=== PATIENT | female | born 1990 | race African-American/Black ===

== ENCOUNTER 2018-01-10 19:22 | Inpatient (IN) | payer BC, OTHER ==
[~2018-01-10] VITALS: Ht 170.2 cm; Wt 64.5 kg
[~2018-01-10 19:22] MED LIST: Z.0.NO CURRENT MEDS
[2018-01-10 19:35] VITALS: BP 133/78; PULSE 79; RESP 16; TEMP 99.1
--- NOTE | 2018-01-10 19:37 | PD ---
HPI Chief Complaint: Psychiatric Symptoms Time Seen by Provider: 19:36 Travel History International Travel<30 days: No Contact w/Intl Traveler<30days: No Traveled to known affect area: No History of Present Illness HPI 27-year-old female here under Avila act [place] by the [employer]. According to the paperwork the patient requested that law-enforcement kill her. Reportedly has a history of bipolar disorder, noncompliant with medication. She has had depression. Prescribed any medications but she does occasionally take [id number] WILMAN-E for mood control. She reports that today after work she was feeling particularly depressed and she went to a bar and told friends that this was her last day. She had no specific suicidal plan, she just had an ominous feeling. she denies any drug use. She has no other complaints at this time. [facility] Past Medical History Seizures: Yes (AT ) Social History Alcohol Use: Yes Tobacco Use: No Substance Use: No Allergies-Medications (Allergen,Severity, Reaction): Coded Allergies: No Known Allergies (Verified Allergy, Mild, 01/10/18) Reported Meds & Prescriptions Reported Meds & Active Scripts Active No Active Prescriptions or Reported Medications Review of Systems Except as stated in HPI: all other systems reviewed are Neg Physical Exam Narrative GENERAL: Well-developed well-nourished female no distress sitting upright in "signal 20" room. SKIN: Warm and dry. HEAD: Atraumatic. Normocephalic. EYES: Pupils equal and round. No scleral icterus. No injection or drainage. ENT: No nasal bleeding or discharge. Mucous membranes pink and moist. NECK: Trachea midline. No JVD. CARDIOVASCULAR: Regular rate and rhythm. No murmur appreciated. RESPIRATORY: No accessory muscle use. Clear to auscultation. Breath sounds equal bilaterally. GASTROINTESTINAL: Abdomen soft, non-tender, nondistended. Hepatic and splenic margins not palpable. MUSCULOSKELETAL: No obvious deformities. No clubbing. No cyanosis. No edema. NEUROLOGICAL: Awake and alert. No obvious cranial nerve deficits. Motor grossly within normal limits. Normal speech. Data Data Last Documented VS Vital Signs Date Time Temp Pulse Resp B/P (MAP) Pulse Ox O2 Delivery O2 Flow Rate FiO2 01/10/18 19:35 99.1 79 16 133/78 (96) Orders Orders Complete Blood Count With Diff (01/10/18 19:36) Comprehensive Metabolic Panel (01/10/18 19:36) Thyroid Stimulating Hormone (01/10/18 19:36) Ed Urine Pregnancytest Poc (01/10/18 19:36) Psych Screen (01/10/18 19:36) Drug Screen, Random Urine (01/10/18 19:36) Alcohol (Ethanol) (01/10/18 19:36) Salicylates (Aspirin) (01/10/18 19:36) Tylenol (Acetaminophen) (01/10/18 19:36) Potassium Chloride (Kcl) (01/10/18 20:45) Labs Laboratory Tests Test 01/10/18 19:34 White Blood Count 3.8 TH/MM3 Red Blood Count 4.49 MIL/MM3 Hemoglobin 12.7 GM/DL Hematocrit 38.3 % Mean Corpuscular Volume 85.3 FL Mean Corpuscular Hemoglobin 28.3 PG Mean Corpuscular Hemoglobin Concent 33.2 % Red Cell Distribution Width 13.5 % Platelet Count 167 TH/MM3 Mean Platelet Volume 9.5 FL Neutrophils (%) (Auto) 45.0 % Lymphocytes (%) (Auto) 42.4 % Monocytes (%) (Auto) 9.7 % Eosinophils (%) (Auto) 2.0 % Basophils (%) (Auto) 0.9 % Neutrophils # (Auto) 1.7 TH/MM3 Lymphocytes # (Auto) 1.6 TH/MM3 Monocytes # (Auto) 0.4 TH/MM3 Eosinophils # (Auto) 0.1 TH/MM3 Basophils # (Auto) 0.0 TH/MM3 CBC Comment DIFF FINAL Differential Comment Blood Urea Nitrogen 7 MG/DL Creatinine 0.70 MG/DL Random Glucose 76 MG/DL Total Protein 7.9 GM/DL Albumin 4.2 GM/DL Calcium Level 8.9 MG/DL Alkaline Phosphatase 50 U/L Aspartate Amino Transf (AST/SGOT) 15 U/L Alanine Aminotransferase (ALT/SGPT) 15 U/L Total Bilirubin 0.5 MG/DL Sodium Level 141 MEQ/L Potassium Level 3.2 MEQ/L Chloride Level 108 MEQ/L Carbon Dioxide Level 23.4 MEQ/L Anion Gap 10 MEQ/L Estimat Glomerular Filtration Rate 123 ML/MIN Thyroid Stimulating Hormone 3rd Gen 4.280 uIU/ML Salicylates Level LESS THAN 1.7 MG/DL Urine Opiates Screen NEG Acetaminophen Level LESS THAN 2.0 MCG/ML Urine Barbiturates Screen NEG Urine Amphetamines Screen NEG Urine Benzodiazepines Screen NEG Urine Cocaine Screen NEG Urine Cannabinoids Screen NEG Ethyl Alcohol Level 37 MG/DL MDM Medical Decision Making Medical Screen Exam Complete: Yes Emergency Medical Condition: Yes Medical Record Reviewed: Yes Differential Diagnosis Major depressive disorder, disorder not otherwise specified, acute psychosis, substance-induced mood disorder Narrative Course 27-year-old female presents under Avila act for psychiatric evaluation. Mental health screening discussed with the patient. Psychiatric screen ordered. Lab work reviewed. TSH elevated at 4.2. Potassium low at 3.2, oral potassium chloride ordered. Alcohol level 37. The patient is medically cleared for psychiatric disposition. Diagnosis Primary Impression: Medical clearance for psychiatric admission Additional Impression: Elevated TSH Scripts No Active Prescriptions or Reported Meds Dajuan Lawton January 10, 2018 19:37
[2018-01-10 19:50] LABS: AUTOMATED NEUTROPHIL # 1.7 TH/MM3 (1.8-7.7); BASOPHIL % 0.9 % (0.0-2.0); EOSINOPHIL # 0.1 TH/MM3 (0-0.4); HEMATOCRIT 38.3 % (35.0-46.0); HEMOGLOBIN 12.7 GM/DL (11.6-15.3); LYMPH % 42.4 % (9.0-44.0); LYMPHOCYTE # 1.6 TH/MM3 (1.0-4.8); MEAN CELL VOLUME 85.3 FL (80.0-100.0); MEAN CORPUSCULAR HEMOGLOBIN 28.3 PG (27.0-34.0); MEAN CORPUSCULAR HGB CONC 33.2 % (32.0-36.0); MEAN PLATELET VOLUME 9.5 FL (7.0-11.0); MONO % 9.7 % (0.0-8.0); MONOCYTE # 0.4 TH/MM3 (0-0.9); PLATELET COUNT 167 TH/MM3 (150-450); RED BLOOD COUNT 4.49 MIL/MM3 (4.00-5.30); RED CELL DISTRIBUTION WIDTH 13.5 % (11.6-17.2); WHITE BLOOD COUNT 3.8 TH/MM3 (4.0-11.0)
[2018-01-10 20:37] LABS: ALBUMIN 4.2 GM/DL (3.4-5.0); ALKALINE PHOSPHATASE 50 U/L (45-117); ALT (GPT) 15 U/L (10-53); AST (GOT) 15 U/L (15-37); BICARBONATE 23.4 MEQ/L (21.0-32.0); BLOOD UREA NITROGEN 7 MG/DL (7-18); CALCIUM 8.9 MG/DL (8.5-10.1); CHLORIDE 108 MEQ/L (98-107); GLOMERULAR FILTRATION RATE 123 ML/MIN (>89); GLUCOSE,RANDOM 76 MG/DL (74-106); SODIUM (NA) 141 MEQ/L (136-145); TOTAL BILIRUBIN ADULT 0.5 MG/DL (0.2-1.0); TOTAL PROTEIN 7.9 GM/DL (6.4-8.2)
[2018-01-10 20:42] LABS: ACETAMINOPHEN LESS THAN 2.0 MCG/ML (10.0-30.0)
[2018-01-10] MEDS ORDERED: POTASSIUM CHLORIDE 20 MEQ CONTROLLED RELEASE TAB PO ONE (20:45)
[2018-01-11 00:05] VITALS: BP 122/58; PULSE 66; RESP 16; O2SAT 100
[2018-01-11 06:37] VITALS: BP 113/56; PULSE 63; RESP 16; O2SAT 100
[2018-01-11] MEDS ORDERED: MAGNESIUM HYDROXIDE SUSP 30 ML CUP PO PRN (09:45)
[2018-01-11] MEDS ORDERED: ALUMINUM/MAGNESIUM/SIMETH 30 ML CUP PO PRN (09:45)
[2018-01-11] MEDS ORDERED: LORazepam 0.5 MG TAB PO PRN (09:45)
[2018-01-11] MEDS ORDERED: LORazepam 2 MG/ML VIAL IM PRN ×2 (09:45)
[2018-01-11] MEDS: NICOTINE 21 MG/24 HR PATCH T-DERMAL SCH (09:45)
[2018-01-11] MEDS ORDERED: ACETAMINOPHEN 325 MG TAB PO PRN (09:45)
[2018-01-11] MEDS ORDERED: LORazepam 1 MG TAB PO PRN (09:45)
[2018-01-11 12:22] VITALS: BP 129/84; PULSE 68; RESP 17; TEMP 98.2; O2SAT 100
--- NOTE | 2018-01-11 12:35 | HHI.HP ---
Provisional Diagnosis Admission Date January 11, 2018 at 09:36 [place] I. Adjustment disorder with depressed mood vs major depressive disorder, single episode, severe, without psychosis vs bipolar disorder, depressed type, [place] II. Unspecified personality disorder, cluster B traits identified [place] III. No significant medical history [place] IV. Previous suicide attempts, extensive self cutting behavior [place] V. 45 Certification of Person's Competence To Provide Express and Informed Consent I have personally examined Jose Raman , a person being served at [facility] on, January 11, 2018 12:08. Express and informed consent means consent voluntarily given in writing, by a competent person, after sufficient explanation and disclosure of the subject matter involved to enable the person to make a knowing and willful decision without any element of force, fraud, deceit, duress, or other form of constraint or coercion. This person is 18 years of age or older, is not now known to be incompetent to consent to treatment with a guardian advocate, and does not have a health care surrogate or proxy currently making medical treatment decisions. I have found this person to be one of the following: [] Competent to provide express and informed consent, as defined above, for voluntary admission to this facility and is competent to provide express and informed consent for treatment. He/she has the consistent capacity to make well reasoned, willful, and knowing decisions concerning his or her medical or mental health treatment. The person fully and consistently understands the purpose of the admission for examination/placement and is fully capable of personally exercising all rights assured [place] Incompetent to provide express and informed consent to voluntary admission, and this is incompetent to provide express and informed consent to treatment. The person must be transferred to involuntary status and a petition for a guardian advocate filed with the Circuit Court. [x] Refusing to provide express and informed consent to voluntary admission but is competent to provide express and informed consent for treatment. The person must be discharged or transferred to involuntary status. Form shall be completed within 24 hours of a person's arrival at the receiving facility and filed in the clinical record of each person: 1. Admitted on a voluntary basis 2. Permitted to provide express and informed consent to his/her own treatment 3. Allowed to transfer from involuntary to voluntary status 4. Prior to permitting a person to consent to his or her own treatment after having been previously found incompetent to consent to treatment. History of Present Illness Capacity: Has Capacity HPI The patient is a 27-year-old -Stateless woman, single, domiciled with her parents in [place], employed, college student, with psychiatric history of self-reported bipolar disorder, no previous psychiatric hospitalizations, one previous suicide attempt by overdosing, extensive self cutting behavior without SI, no significant medical history, who is here under Avila act initially by the [employer]. According to the paperwork the patient requested that law-enforcement kill her. Reportedly has a history of bipolar disorder, noncompliant with medication. She has had depression. Prescribed any medications but she does occasionally take [id number] WILMAN-E for mood control. She reports that today after work she was feeling particularly depressed and she went to a bar and told friends that this was her last day. She had no specific suicidal plan, she just had an ominous feeling. she denies any drug use. She has no other complaints at this time. Initially U tox was negative, BAL was 37. On psychiatric evaluation today the patient is calm, cooperative, she looks objectively depressed. The patient reports that she has been quite depressed in the last weeks. She says that she has been having persistent suicidal thoughts, but no suicidal intention or plan. She says that she needs help "because I am going to kill myself". She reports that there are several things going on in her life. She says that there is drama and her family in her job and at school. She reports that she has been very sensitive to criticisms and rejection of friends and family. She also reports mood swings and constant argument with her parents. She feels worthless, helpless and hopeless. She repeatedly says during interwe "I am a failure, I am a failure". He also reports anxiety, frequent preoccupation and worry for this reason difficulty to sleep at night. At this moment she denies suicidal enemas ideation, she denies visual and auditory hallucinations. The patient is fully oriented 3. No gross cognitive impairment present. She reports occasional use of alcohol and marijuana. The patient reports that in the past she has been diagnosed with bipolar disorder, but she has not taken any medication, at some point she told me that the only medication that she took and worked for her in the past was Ritalin and she would love to be back in this medication, which he could not tell me what was the reason she was taking this medication for. Review of Systems Constitutional: DENIES: Diaphoretic episodes, Fatigue, Fever, Weight gain, Weight loss, Chills, Dizziness, Change in appetite, Night Sweats Endocrine: DENIES: Abnorml menstrual pattern, Heat/cold intolerance, Polydipsia , Polyuria, Polyphagia Eyes: DENIES: Blurred vision, Diplopia, Eye inflammation, Eye pain, Vision loss , Photosensitivity, Double Vision Ears, nose, mouth, throat: DENIES: Tinnitus, Hearing loss, Vertigo, Nasal discharge, Oral lesions, Throat pain, Hoarseness, Ear Pain, Running Nose, Epistaxis, Sinus Pain, Toothache, Odynophagia Respiratory: DENIES: Apneas, Cough, Snoring, Wheezing, Hemoptysis, Sputum production, Shortness of breath Cardiovascular: DENIES: Chest pain, Palpitations, Syncope, Dyspnea on Exertion , PND, Lower Extremity Edema, Orthopnea, Claudication Gastrointestinal: DENIES: Abdominal pain, Black stools, Bloody stools, Constipation, Diarrhea, Nausea, Vomiting, Difficulty Swallowing, Anorexia Genitourinary: DENIES: Abnormal vaginal bleeding, Dysmenorrhea, Dyspareunia, Sexual dysfunction, Urinary frequency, Urinary incontinence, Urgency, Hematuria , Dysuria, Nocturia, Vaginal discharge Musculoskeletal: DENIES: Joint pain, Muscle aches, Stiffness, Joint Swelling, Back pain, Neck pain Integumentary: DENIES: Abnormal pigmentation, Pruritus, Rash, Nail changes, Breast masses, Breast skin changes, Nipple discharge Hematologic/lymphatic: DENIES: Bruising, Lymphadenopathy Immunologic/allergic: DENIES: Eczema, Urticaria Neurologic: DENIES: Abnormal gait, Headache, Localized weakness, Paresthesias, Seizures, Speech Problems, Tremor, Poor Balance Psychiatric: COMPLAINS OF: Depression, Suicidal Ideation, DENIES: Anxiety, Confusion, Mood changes, Hallucinations, Agitation, Homicidal Ideation, Delusions Past Psych History Violence risk - self (6 mos) Increased Substance Abuse History Drugs/Alcohol past 12 months Patient reports occasional use of alcohol of marijuana Past Family Social History Coded Allergies: No Known Allergies (Verified Allergy, Mild, 01/10/18) Discontinued Reported Medications Miscellaneous (No Current Meds) [facility] [place] Current Medications Medications (Trade) Dose Ordered Sig/Bandar Route Start Time Stop Time Status Last Admin (Ativan) 1 mg Q6H PRN PO 01/11/18 09:45 (Ativan Inj) 1 mg Q6H PRN IM 01/11/18 09:45 (Ativan) 0.5 mg Q12H PRN PO 01/11/18 09:45 (Ativan Inj) 0.5 mg Q12H PRN IM 01/11/18 09:45 (Tylenol) 650 mg Q4H PRN PO 01/11/18 09:45 (Milk Of Magnesia Liq) 30 ml DAILY PRN PO 01/11/18 09:45 (Mag-Al Plus Susp Liq) 30 ml Q6H PRN PO 01/11/18 09:45 (Habitrol 21 Mg Patch.24 Hr) 1 patch DAILY T-DERMAL 01/11/18 09:45 (Wellbutrin) 75 mg Q12HR PO 01/11/18 11:00 Miscellaneous Information 1 HS T-DERMAL 01/11/18 21:00 Family Psych History Mother is bipolar Social History Patient was born and raised in [place] with her parents, single, college student in [employer], she works in [employer], she denies history of psychological or physical abuse. Patient's Strengths (min. 2) Verbal communication Physical Exam No tremors, no EPS, no withdrawal symptoms, no psychomotor agitation or retardation. Vital Signs Vital Signs Date Time Temp Pulse Resp B/P (MAP) Pulse Ox O2 Delivery O2 Flow Rate FiO2 01/11/18 06:37 63 16 113/56 (75) 100 Room Air 01/10/18 19:35 99.1 Lab Results Test 01/10/18 19:34 White Blood Count 3.8 TH/MM3 Red Blood Count 4.49 MIL/MM3 Hemoglobin 12.7 GM/DL Hematocrit 38.3 % Mean Corpuscular Volume 85.3 FL Mean Corpuscular Hemoglobin 28.3 PG Mean Corpuscular Hemoglobin Concent 33.2 % Red Cell Distribution Width 13.5 % Platelet Count 167 TH/MM3 Mean Platelet Volume 9.5 FL Neutrophils (%) (Auto) 45.0 % Lymphocytes (%) (Auto) 42.4 % Monocytes (%) (Auto) 9.7 % Eosinophils (%) (Auto) 2.0 % Basophils (%) (Auto) 0.9 % Neutrophils # (Auto) 1.7 TH/MM3 Lymphocytes # (Auto) 1.6 TH/MM3 Monocytes # (Auto) 0.4 TH/MM3 Eosinophils # (Auto) 0.1 TH/MM3 Basophils # (Auto) 0.0 TH/MM3 CBC Comment DIFF FINAL Differential Comment Blood Urea Nitrogen 7 MG/DL Creatinine 0.70 MG/DL Random Glucose 76 MG/DL Total Protein 7.9 GM/DL Albumin 4.2 GM/DL Calcium Level 8.9 MG/DL Alkaline Phosphatase 50 U/L Aspartate Amino Transf (AST/SGOT) 15 U/L Alanine Aminotransferase (ALT/SGPT) 15 U/L Total Bilirubin 0.5 MG/DL Sodium Level 141 MEQ/L Potassium Level 3.2 MEQ/L Chloride Level 108 MEQ/L Carbon Dioxide Level 23.4 MEQ/L Anion Gap 10 MEQ/L Estimat Glomerular Filtration Rate 123 ML/MIN Thyroid Stimulating Hormone 3rd Gen 4.280 uIU/ML Salicylates Level LESS THAN 1.7 MG/DL Urine Opiates Screen NEG Acetaminophen Level LESS THAN 2.0 MCG/ML Urine Barbiturates Screen NEG Urine Amphetamines Screen NEG Urine Benzodiazepines Screen NEG Urine Cocaine Screen NEG Urine Cannabinoids Screen NEG Ethyl Alcohol Level 37 MG/DL Mental Status Examination Appearance: Appropriate Consciousness: Alert Orientation: x4 Motor Activity: Normal gait Speech: Unremarkable Language: Adequate Fund of Knowledge: Adequate Attention and Concentration: Adequate Memory: Unremarkable Mood: Sad Affect: Irritable Thought Process & Associations: Intact Thought Content: Appropriate Hallucination Type: None Delusion Type: None Suicidal Ideation: Yes Suicidal Plan: No Suicidal Intention: No Homicidal Ideation: No Homicidal Plan: No Homicidal Intention: No Insight: Poor Judgment: Poor Assessment & Plan Problem List: (1) Adjustment disorder with depressed mood ICD Codes: F43.21 - Adjustment disorder with depressed mood Assessment & Plan: Psychiatric evaluation the patient presents with symptoms of acute depression, she reports having persistent suicidal thoughts, hopelessness, helplessness, difficulty sleeping at night, increased sensitivity to rejection frustration and abandonment. The patient has history of bipolar disorder, but no hospitalizations, one previous suicide attempt by overdosing, and an extensive history of self cutting behavior without SI. Since the patient was Avila acted due to a suicidal gesture and suicidal expression to law -enforcement I will admit her for stabilization and safety. We will start Wellbutrin 75 mg twice daily for depression. Bipolar disorder, depressed mood versus major depression versus adjustment with depression are the diagnosis to be explored carefully in this patient, but also personality disorder in the cluster B spectrum is another possibility, since multiple cluster B traits are identified during my evaluation. Brief supportive psychotherapy was provided. Transferred to 26 on the unit. Collateral information still pending. Assessment & Plan Estimated LOS: days Parminder Roldan MD January 11, 2018 12:35
[2018-01-11] MEDS: buPROPion HCL 75 MG TAB PO SCH ×2 (13:40→20:41)
[2018-01-11] MEDS: REMOVE OLD NICODERM (NICOTINE) PATCH T-DERMAL SCH (20:42)
[2018-01-12 06:16] VITALS: BP 102/58; PULSE 66; RESP 16; TEMP 98; O2SAT 97
[2018-01-12] MEDS: buPROPion HCL 75 MG TAB PO SCH ×2 (08:12→21:12)
[2018-01-12] MEDS: NICOTINE 21 MG/24 HR PATCH T-DERMAL SCH (08:12)
[2018-01-12] MEDS ORDERED: INFLUENZA VIRUS VACCINE (QUADRIVALENT) 0.5 ML SYR IM ONE (10:00)
[2018-01-12 11:15] LABS: BLOOD UREA NITROGEN 8 MG/DL (7-18); CALCIUM 8.8 MG/DL (8.5-10.1); CHLORIDE 105 MEQ/L (98-107); CHOLESTEROL 143 MG/DL (120-200); CREATININE 0.71 MG/DL (0.50-1.00); GLOMERULAR FILTRATION RATE 121 ML/MIN (>89); GLUCOSE,RANDOM 83 MG/DL (74-106); SODIUM (NA) 138 MEQ/L (136-145)
[2018-01-12 11:32] LABS: CHOLESTEROL/ HDL RATIO 1.67 RATIO; HDL CHOLESTEROL 85.3 MG/DL (40.0-60.0); LDL CHOLESTEROL 46 MG/DL (0-99); TRIGLYCERIDES 59 MG/DL (42-150)
--- NOTE | 2018-01-12 11:56 | HHI.PYPN ---
Subjective Remarks Above patient initially admitted by Dr. Parminder Alicea,'s H&P reviewed and agreed with. I have finished the initial psychiatric template admitting orders , and did the med reconciliation review. Dr. Alicea is done first opinion petition supporting Avila act. 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 (Patient is [employer]) however patient continues to work there because of the financial rewards. She is also under some stress with her college courses at [employer]. She lives with her grandparents were supportive. She denies prior psychiatric contact hospitalizations or psychotropic medications except briefly as a young teenager was placed briefly on a psychostimulant. Though there is been no hospitalization. Patient denies prior suicide attempts. This appears to be somewhat impulsive behavior. She today denies suicidality and homicidality voices or visions. She states alcohol use is intermittent and light. She is trying marijuana and does not like it. For now we will continue treatment no change. I do agree with Dr. Alicea thus I will cosign second opinion petition supporting Avila act Review of Systems Except as stated in HPI: all other systems reviewed are Neg Mental Status Examination Appearance: Appropriate Consciousness: Alert Orientation: x4 Motor Activity: Normal gait Speech: Unremarkable Language: Adequate Fund of Knowledge: Adequate Attention and Concentration: Adequate Memory: Unremarkable Mood: Sad Affect: Irritable Thought Process & Associations: Intact Thought Content: Appropriate Hallucination Type: None Delusion Type: None Suicidal Ideation: Yes Suicidal Plan: No Suicidal Intention: No Homicidal Ideation: No Homicidal Plan: No Homicidal Intention: No Insight: Poor Judgment: Poor Results Labs Test 01/12/18 10:32 Blood Urea Nitrogen 8 MG/DL Creatinine 0.71 MG/DL Random Glucose 83 MG/DL Calcium Level 8.8 MG/DL Sodium Level 138 MEQ/L Potassium Level 3.8 MEQ/L Chloride Level 105 MEQ/L Carbon Dioxide Level 24.0 MEQ/L Anion Gap 9 MEQ/L Estimat Glomerular Filtration Rate 121 ML/MIN Triglycerides Level 59 MG/DL Cholesterol Level 143 MG/DL LDL Cholesterol 46 MG/DL HDL Cholesterol 85.3 MG/DL Cholesterol/HDL Ratio 1.67 RATIO Vitals/IOs Vital Signs Date Time Temp Pulse Resp B/P (MAP) Pulse Ox O2 Delivery O2 Flow Rate FiO2 01/12/18 06:16 98.0 66 16 102/58 (73) 97 01/11/18 06:37 Room Air Assessment & Plan Problem List: (1) Adjustment disorder with mixed disturbance of emotions and conduct ICD Codes: F43.25 - Adjustment disorder with mixed disturbance of emotions and conduct Assessment & Plan Estimated LOS: 1-2 days patient somewhat calmer today now denies suicidality, shows some insight into her need to keep appropriate distances and relationships and control of her emotions. We will continue treatment at the present time consider discharge 1-2 days Justification for Cont. Inpt. At this time patient would decompensate a place to a lower level of care Discharge Planning Return home with grandparents Request HC Surrog/Guard Advoc?: No Calvin Negro MD January 12, 2018 11:56
[2018-01-12] MEDS ORDERED: hydrOXYzine HCL 50 MG TAB PO PRN (12:00)
[2018-01-12] MEDS ORDERED: diphenhydrAMINE HCL 50 MG CAP PO PRN (12:00)
[2018-01-12 16:11] LABS: HEMOGLOBIN A1C 4.9 % (4.3-6.0)
[2018-01-12 17:43] VITALS: BP 125/60; PULSE 67; RESP 16; TEMP 98.3; O2SAT 98
[2018-01-12] MEDS: REMOVE OLD NICODERM (NICOTINE) PATCH T-DERMAL SCH (21:00)
[2018-01-13] MEDS: NICOTINE 21 MG/24 HR PATCH T-DERMAL SCH (09:00)
[2018-01-13] MEDS: buPROPion HCL 75 MG TAB PO SCH (09:08)
[2018-01-13] MEDS ORDERED: BUPR75TA PO (11:17)
--- NOTE | 2018-01-13 11:20 | HHI.DS ---
Psychiatry Discharge Summary Inpatient Psychiatric care?: Yes Advance Directive: Yes Reason Not Provided: Provided to patient Mental Health AdvanceDirective: No Health Care Proxy: No Admission Admission Date January 11, 2018 at 09:36 Admission Diagnosis: (1) Adjustment disorder with mixed disturbance of emotions and conduct ICD Code: F43.25 - Adjustment disorder with mixed disturbance of emotions and conduct Brief History The patient is a 27-year-old -[place] woman, single, domiciled with her parents in [place], employed, college student, with psychiatric history of self-reported bipolar disorder, no previous psychiatric hospitalizations, one previous suicide attempt by overdosing, extensive self cutting behavior without SI, no significant medical history, who is here under [place] act initially by the [employer]. According to the paperwork the patient requested that law-enforcement kill her. Reportedly has a history of bipolar disorder, noncompliant with medication. She has had depression. Prescribed any medications but she does occasionally take [id number] WILMAN-[id number] for mood control. She reports that today after work she was feeling particularly depressed and she went to a bar and told friends that this was her last day. She had no specific suicidal plan, she just had an ominous feeling. she denies any drug use. She has no other complaints at this time. Initially U tox was negative, BAL was 37. On psychiatric evaluation today the patient is calm, cooperative, she looks objectively depressed. The patient reports that she has been quite depressed in the last weeks. She says that she has been having persistent suicidal thoughts, but no suicidal intention or plan. She says that she needs help "because I am going to kill myself". She reports that there are several things going on in her life. She says that there is drama and her family in her job and at school. She reports that she has been very sensitive to criticisms and rejection of friends and family. She also reports mood swings and constant argument with her parents. She feels worthless, helpless and hopeless. She repeatedly says during interwe "I am a failure, I am a failure". He also reports anxiety, frequent preoccupation and worry for this reason difficulty to sleep at night. At this moment she denies suicidal enemas ideation, she denies visual and auditory hallucinations. The patient is fully oriented 3. No gross cognitive impairment present. She reports occasional use of alcohol and marijuana. The patient reports that in the past she has been diagnosed with bipolar disorder, but she has not taken any medication, at some point she told me that the only medication that she took and worked for her in the past was Ritalin and she would love to be back in this medication, which he could not tell me what was the reason she was taking this medication for. Tobacco Use In Past 30 Days: Cigarettes But Not Daily Alcohol Use: Monthly or Less Hospital Course Patient's hospital course was uneventful, she showed compliance with medication low problems. She slept well she continues to deny suicidality homicidality voices or visions. She has talked to the grandmother. Things are well at home at this time also. At this time patient no longer meets criteria for inpatient psychiatric hospitalization. Patient to be discharged today to herself the follow-up with Dr. navarro in the community. With Rx 1 month Results Blood Pressure 125 / 60 Vital Signs Date Time Temp Pulse Resp B/P (MAP) Pulse Ox O2 Delivery O2 Flow Rate FiO2 01/12/18 17:43 98.3 67 16 125/60 (81) 98 01/11/18 06:37 Room Air Laboratory Tests Test 01/10/18 19:34 01/12/18 10:32 White Blood Count 3.8 TH/MM3 (4.0-11.0) Monocytes (%) (Auto) 9.7 % (0.0-8.0) Neutrophils # (Auto) 1.7 TH/MM3 (1.8-7.7) Potassium Level 3.2 MEQ/L (3.5-5.1) Chloride Level 108 MEQ/L (98-107) Thyroid Stimulating Hormone 3rd Gen 4.280 uIU/ML (0.358-3.740) Salicylates Level LESS THAN 1.7 MG/DL Acetaminophen Level LESS THAN 2.0 MCG/ML Ethyl Alcohol Level 37 MG/DL (0-5) HDL Cholesterol 85.3 MG/DL (40.0-60.0) Laboratory Results Test 01/12/18 10:32 Cholesterol Level 143 MG/DL (120-200) HDL Cholesterol 85.3 MG/DL (40.0-60.0) Hemoglobin A1c 4.9 % (4.3-6.0) LDL Cholesterol 46 MG/DL (0-99) Triglycerides Level 59 MG/DL (42-150) Summary of Procedures None done Pending results at discharge: No Medications # of Antipsychotic meds at D/C: 0 Approp Antipsych med options 1 - Minimum of three failed multiple trials of monotherapy. 2 - Documented plan to taper to monotherapy due to previous use of multiple meds OR cross-taper in progress at D/C. 3 - Documentation of augmentation of Clozapine. 4 - Justification other than those listed in allowable values 1-3, document here : Discharge Discharge Date: January 13, 2018 Discharge Diagnosis: (1) Adjustment disorder with mixed disturbance of emotions and conduct Diagnosis: Principal ICD Code: F43.25 - Adjustment disorder with mixed disturbance of emotions and conduct Pt Condition on Discharge: Stable Discharge Disposition: Discharge Home Discharge Instructions Diet Instructions: As Tolerated, No Restrictions Activities you can perform: Regular-No Restrictions Scheduled Appointment: Dr Navarro Appointment Date: Jan 30, 2018 Discharge Time > 30 minutes Mental Status Examination Appearance: Appropriate Consciousness: Alert Orientation: x4 Motor Activity: Normal gait Speech: Unremarkable Language: Adequate Fund of Knowledge: Adequate Attention and Concentration: Adequate Memory: Unremarkable Mood: Sad Affect: Irritable Thought Process & Associations: Intact Thought Content: Appropriate Hallucination Type: None Delusion Type: None Suicidal Ideation: Yes Suicidal Plan: No Suicidal Intention: No Homicidal Ideation: No Homicidal Plan: No Homicidal Intention: No Insight: Poor Judgment: Poor Discharge/Advance Care Plan Health Problems: (1) Adjustment disorder with mixed disturbance of emotions and conduct Goals to promote your health * To prevent worsening of your condition and complications * To maintain your health at the optimal level Directions to meet your goals Take your medications as prescribed Follow your dietary instruction Follow activity as directed Keep your appointments as scheduled Take your immunizations and boosters as scheduled If your symptoms worsen call your PCP, if no PCP go to Urgent Care Center or Emergency Room For 21/03 questions related to your inpatient stay or results of tests pending at discharge, please contact Dr. Calvin Negro at Smoking is Dangerous to Your Health. Avoid second hand smoking Calvin Negro MD January 13, 2018 11:20
== END 2018-01-13 14:25 | disposition home or self-care (01) | DRG 882 ==
LOC: NEDAMB 19:22 → NEDA 01-11 09:36 → H260 01-11 12:00
PROVIDERS: ADMIT Psychiatry & Neurology Psychiatry; ATTEND Psychiatry & Neurology Psychiatry
DX: F43.25 Adjustment disorder with mixed disturbance of emotions and conduct (principal); R45.851 Suicidal ideations; Z91.14 Patient's other noncompliance with medication regimen; F31.9 Bipolar disorder, unspecified; F60.89 Other specific personality disorders; Z23 Encounter for immunization; F12.90 Cannabis use, unspecified, uncomplicated; Z72.0 Tobacco use; Z81.8 Family history of other mental and behavioral disorders; Z91.5 Personal history of self-harm
CPT/HCPCS: 80048; 80053; 80061; 80307; 83036; 84443; 84703; 85025; 90686; 99285; Q2038